=== PATIENT | female | born 1980 | race American Indian/Alaskan Native ===

== ENCOUNTER 2017-06-26 20:07 | Emergency (ER) | payer MEDICAID ==
[2017-06-26 21:04] LABS: Basophils % (Auto) 0.6 % (0.0-1.8); Eosinophils % (Auto) 3.7 % (0.0-4.3); Hematocrit 34.9 % (30.3-42.9); Hemoglobin 12.1 gm/dl (10.1-14.3); Mean Corpuscular HGB Conc 35 % (30-34); Mean Corpuscular Hemoglobin 32 pg (28-32); Mean Corpuscular Volume 93 fl (79-97); Platelet Count 217 K/mm3 (140-440); Red Blood Count 3.74 M/mm3 (3.65-5.03); Red Cell Distribution Width 11.7 % (13.2-15.2); White Blood Count 4.4 K/mm3 (4.5-11.0)
[2017-06-26 21:25] LABS: Anion Gap 17 mmol/L; Blood Urea Nitrogen 9 mg/dL (7-17); Calcium 9.2 mg/dL (8.4-10.2); Carbon Dioxide 23 mmol/L (22-30); Chloride 103.8 mmol/L (98-107); Glucose 114 mg/dL (65-100); Potassium 3.5 mmol/L (3.6-5.0); Sodium 140 mmol/L (137-145)
[2017-06-26 21:44] LABS: Bilirubin,Urine NEG (Negative); Blood,Urine MOD (Negative); Ketones,Urine NEG (Negative); Leukocyte Esterase,Urine TR (Negative); Mucus,Urine FEW /HPF; Nitrite,Urine NEG (Negative); Protein,Urine <15 mg/dL mg/dL (Negative); Urobilinogen,Urine < 2.0 mg/dL (<2.0); WBC,Urine < 1.0 /HPF (0.0-6.0)
[2017-06-27 00:05] VITALS: BP 140/89
[2017-06-27] MEDS ORDERED: TORADOL IM ONE (00:53)
[2017-06-27] MEDS ORDERED: TESSALON PERLES PO ONE (00:53)
--- NOTE | 2017-06-27 00:57 | Emergency Department Report ---
- General Chief Complaint: Upper Respiratory Infection Stated Complaint: CHEST PAIN Time Seen by Provider: 06/27/17 00:47 Source: patient Mode of arrival: Ambulatory Limitations: No Limitations - History of Present Illness Initial Comments: This is a 36-year-old female nontoxic, well nourished in appearance, no acute signs of distress presents to the ED complaining of green mucus productive cough , midsternal chest pain and intermittent headache 1 week. Patient stated chest pain is intermittent upon cough. Currently in the ED patient denies any chest pain or headache stated it subsided. Patient denies any trauma to the chest or head. Denies blurry vision, but the clot headache, fever, chills, nausea, vomiting, chest pain, wheezing, numbness or tingling. Denies stiff neck. Patient denies recent travels, long car rides or recent hospital stays. Denies calf pain or tenderness. Denies hemoptysis. Patient states allergies to sulfa. Past medical history includes asthma. MD Complaint: cough, sinus pain -: Gradual, week(s) (1) Severity: mild Severity scale (0 -10): 7 Quality: aching Consistency: constant Improves With: nothing Worsens With: nothing Associated Symptoms: denies other symptoms, headache, cough. denies: fever, chills, myalgias, diaphoresis, rhinorrhea, nasal congestion, sore throat, stiff neck, chest pain, shortness of breath, abdominal pain, nausea, vomiting, diarrhea, dysuria, rash, confusion, right sweats, weight loss, epistaxis, hoarseness, ear pain Treatments Prior to Arrival: none - Related Data Previous Rx's Medication Instructions Recorded Last Taken Type Azithromycin [Zithromax Z-SANIA] 250 mg PO DAILY #6 tablet 06/27/17 Unknown Rx Butalb/Acetamin/Caff 50-325-40 1 tab PO Q6HR PRN #30 tab 06/27/17 Unknown Rx [Fioricet] Prednisone [predniSONE 10 mg 10 mg PO .TAPER #1 tab.ds.pk 06/27/17 Unknown Rx (6-Day Pack, 21 Tabs)] Allergies Allergy/AdvReac Type Severity Reaction Status Date / Time Sulfa (Sulfonamide Allergy Swelling Verified 06/26/17 20:22 Antibiotics) ED Review of Systems ROS: Stated complaint: CHEST PAIN Other details as noted in HPI Constitutional: denies: chills, fever Eyes: denies: eye pain, eye discharge, vision change ENT: denies: ear pain, throat pain Respiratory: cough. denies: shortness of breath, wheezing Cardiovascular: denies: chest pain, palpitations Endocrine: no symptoms reported Gastrointestinal: denies: abdominal pain, nausea, diarrhea Genitourinary: denies: urgency, dysuria, discharge Musculoskeletal: denies: back pain, joint swelling, arthralgia Skin: denies: rash, lesions Neurological: denies: headache, weakness, paresthesias Psychiatric: denies: anxiety, depression Hematological/Lymphatic: denies: easy bleeding, easy bruising ED Past Medical Hx - Past Medical History Previous Medical History?: Yes Hx Asthma: Yes - Surgical History Past Surgical History?: No - Social History Smoking Status: Heavy Tobacco Smoker Substance Use Type: Alcohol - Medications Home Medications: Home Medications Medication Instructions Recorded Confirmed Last Taken Type Azithromycin [Zithromax Z-SANIA] 250 mg PO DAILY #6 tablet 06/27/17 Unknown Rx Butalb/Acetamin/Caff 50-325-40 1 tab PO Q6HR PRN #30 tab 06/27/17 Unknown Rx [Fioricet] Prednisone [predniSONE 10 mg 10 mg PO .TAPER #1 tab.ds.pk 06/27/17 Unknown Rx (6-Day Pack, 21 Tabs)] ED Physical Exam - General Limitations: No Limitations General appearance: alert, in no apparent distress - Head Head exam: Present: atraumatic, normocephalic, normal inspection - Eye Eye exam: Present: normal appearance, PERRL, EOMI. Absent: scleral icterus, conjunctival injection, nystagmus, periorbital swelling, periorbital tenderness Pupils: Present: normal accommodation - ENT ENT exam: Present: normal exam, normal orophraynx, mucous membranes moist, TM's normal bilaterally, normal external ear exam - Neck Neck exam: Present: normal inspection, full ROM. Absent: tenderness, meningismus, lymphadenopathy, thyromegaly - Respiratory Respiratory exam: Present: normal lung sounds bilaterally. Absent: respiratory distress, wheezes, rales, rhonchi, stridor, chest wall tenderness, accessory muscle use, decreased breath sounds, prolonged expiratory - Cardiovascular Cardiovascular Exam: Present: regular rate, normal rhythm, normal heart sounds. Absent: bradycardia, tachycardia, irregular rhythm, systolic murmur, diastolic murmur, rubs, gallop - GI/Abdominal GI/Abdominal exam: Present: soft, normal bowel sounds. Absent: distended, tenderness, guarding, rebound, rigid, diminished bowel sounds - Rectal Rectal exam: Present: deferred - Extremities Exam Extremities exam: Present: normal inspection, full ROM, normal capillary refill. Absent: tenderness, pedal edema, joint swelling, calf tenderness - Back Exam Back exam: Present: normal inspection, full ROM. Absent: tenderness, CVA tenderness (R), CVA tenderness (L), muscle spasm, paraspinal tenderness, vertebral tenderness, rash noted - Neurological Exam Neurological exam: Present: alert, oriented X3, CN II-XII intact, normal gait, reflexes normal - Expanded Neurological Exam Expanded Patient oriented to: Present: person, place, time Speech: Present: fluid speech Cranial nerves: EOM's Intact: Normal, Gag Reflex: Normal, Tongue Deviation: Normal, Nystagmus: Normal, Facial Sensation: Normal, Facial Palsy with Forehead Movement: Normal, Facial Palsy without Forehead Movement: Normal Cerebellar function: Finger to Nose: Normal, Heel to Dyer: Normal, Romberg: Normal Upper motor neuron: Johnson Neglect: Normal, Pronator Drift: Normal, Babinski Sign : Normal, Sensory Extinction: Normal Sensory exam: Upper Extremity Light Touch: Normal, Upper Extremity Pin Prick: Normal, Upper Extremity Temperature: Normal, UE 2 Point Discrimination: Normal, Lower Extremity Light Touch: Normal, Lower Extremity Pin Prick: Normal, Lower Extremity Temperature: Normal, LE 2 Point Discrimination: Normal Motor strength exam: RUE: 5, LUE: 5, RLE: 5, LLE: 5 DTR: bicep (R): 2+, bicep (L): 2+, tricep (R): 2+, tricep (L): 2+, knee (R): 2+ , knee (L): 2+, ankle (R): 2+, ankle (L): 2+ Best Eye Response (Omari): (4) open spontaneously Best Motor Response (Omari): (6) obeys commands Best Verbal Response (Omari): (5) oriented [place] Total: 15 - Psychiatric Psychiatric exam: Present: normal affect, normal mood - Skin Skin exam: Present: warm, dry, intact, normal color. Absent: rash - Other Other exam information: Mid-sternum chest pain upon palpation. ED Course Vital Signs 06/26/17 20:23 Temperature 97.4 F L Pulse Rate 60 Respiratory 20 Rate Blood Pressure 140/89 O2 Sat by Pulse 100 Oximetry - Reevaluation(s) Reevaluation #1: 06/27/17 00:56 Patient is speaking in full sentences with no signs of distress noted. ED Medical Decision Making - Lab Data Result diagrams: 06/26/17 20:40 06/26/17 20:40 - Medical Decision Making This is a 36-year-old female that presents with costochondritis and upper respiratory infection. Patient was at some of the cell. Patient is stable. CBC, BMP, troponin, UA, an EKG has been obtained with all normal findings. Chest x-ray has been obtained as well and dictated by radiologist with no abnormalities noted. Patient was notified of x-ray results with no further questioned by the patient. Patient received Tessalon Perles and Toradol in the ED. Headache stated it subsided and currently patient does not have any chest pain. Patient discharged with azithromycin and prednisone. Patient was instructed to follow-up with a primary care doctor in 3-5 days or if symptoms worsen and continue present emergency room as soon as possible. Critical care attestation.: If time is entered above; I have spent that time in minutes in the direct care of this critically ill patient, excluding procedure time. ED Disposition Clinical Impression: Costochondritis Upper respiratory infection Qualifiers: URI type: unspecified URI Qualified Code(s): J06.9 - Acute upper respiratory infection, unspecified Headache Qualifiers: Headache type: unspecified Headache chronicity pattern: chronic headache Intractability: not intractable Qualified Code(s): R51 - Headache Disposition: DC-01 TO HOME OR SELFCARE Is pt being admited?: No Does the pt Need Aspirin: No Condition: Stable Instructions: Costochondritis (ED), Upper Respiratory Infection (ED), Prednisone (By mouth), Azithromycin (By mouth) Additional Instructions: follow-up with a primary care doctor in 3-5 days or if symptoms worsen and continue present emergency room as soon as possible. Prescriptions: Azithromycin [Zithromax Z-SANIA] 250 mg PO DAILY #6 tablet Butalb/Acetamin/Caff 50-325-40 [Fioricet] 1 tab PO Q6HR PRN #30 tab PRN Reason: Headache Prednisone [predniSONE 10 mg (6-Day Pack, 21 Tabs)] 10 mg PO .TAPER #1 tab.ds.pk Referrals: PRIMARY CARE, [Primary Care Provider] - 3-5 Days JENNIFER RINALDI MD [Staff Physician] - 3-5 Days RAYSHAWN CRANE JR, MD [Referring] - 3-5 Days [facility] [Outside] - 3-5 Days [facility] [Outside] - 3-5 Days Forms: Work/School Release Form(ED)
--- NOTE | 2017-06-27 01:03 | XRay Report ---
FINAL REPORT EXAM: XR CHEST ROUTINE 2V HISTORY: CHEST TIGHTNESS/COUGHING COMPARISON: None available. FINDINGS:: Frontal and lateral views of the chest obtained. Cardiac silhouette is within normal limits. No focal consolidation or effusion. No pneumothorax. Visualized bony thorax is grossly intact. IMPRESSION:: No acute findings.
== END 2017-06-27 01:33 | disposition home or self-care (01) ==
LOC: ED 20:07
DX: J06.9 Acute upper respiratory infection, unspecified (principal); M94.0 Chondrocostal junction syndrome [Tietze]; R51 Headache; J45.909 Unspecified asthma, uncomplicated; F17.200 Nicotine dependence, unspecified, uncomplicated; Z88.2 Allergy status to sulfonamides
CPT/HCPCS: 36415; 71020; 80048; 81001; 84484; 84703; 85025; 93005; 93010; 96372; 99284; J1885

== ENCOUNTER 2017-08-01 09:41 | Outpatient (CLI) | payer MEDICAID ==
--- NOTE | 2017-08-01 16:39 | Ultrasound Report ---
BILATERAL DIGITAL DIAGNOSTIC MAMMOGRAM with CAD and TOMOSYNTHESIS and BILATERAL BREAST ULTRASOUND: 08/01/17 09:41:00 CLINICAL: 36-year-old with a dark reddish left nipple discharge over nine months. COMPARISON:None. These are Baseline studies. FINDINGS: The breasts are mostly fatty with a few bilateral scattered fibrolinear densities. Left outer duct ectasia involving several branching ducts. No mass or architectural distortion. A right retroareolar asymmetry on the CC tomographic sequence. Ultrasound of the right breast demonstrated a slightly irregular cyst at 12 o'clock 6 cm from the nipple. It measures 8 x 3 x 4 mm and has a few internal echoes. It correlates with the mammographic asymmetry. No solid mass or shadowing. Ultrasound of the left breast (including the retroareolar area and all four quadrants) was performed. Several moderately dilated outer ducts and a subareolar duct at 3 o'clock with an oval echogenic mass in the duct. The mass measures 8 x 3 x 4 mm. No other intraductal mass is identified. A subareolar round echogenic mass at 4 o'clock measures 3 x 5 x 4 mm. No shadowing. IMPRESSION: 1. An 8 mm left subareolar intraductal mass which probably explains the bloody left nipple discharge. Recommend ultrasound-guided vacuum assisted needle biopsy of the left breast. 2. A 5 mm hyperechoic subareolar mass at 4 o'clock. Recommend ultrasound guided needle biopsy. 3. A benign right breast cyst at 12 o'clock. BI-RADS CATEGORY: 4--Suspicious RECOMMENDATION: Ultrasound guided needle biopsy at 2 sites left breast. COMMENT: Patient follow-up letters are generated by our [employer] application.
== END 2017-08-01 09:42 | disposition home or self-care (01) ==
LOC: US 09:41
PROVIDERS: ATTEND Nurse Practitioner Gerontology
DX: N60.01 Solitary cyst of right breast (principal); N64.52 Nipple discharge; N60.42 Mammary duct ectasia of left breast; N63.20 Unspecified lump in the left breast, unspecified quadrant; F17.200 Nicotine dependence, unspecified, uncomplicated
CPT/HCPCS: 76642; G0204; G0279; 77063; 77066

== ENCOUNTER 2017-09-20 09:08 | Outpatient (CLI) | payer MEDICAID ==
--- NOTE | 2017-09-24 09:06 | Ultrasound Report ---
LEFT BREAST ULTRASOUND: 09/20/17 09:08:00 CLINICAL: The patient was scheduled for an ultrasound guided biopsy of the lesion identified on 08/01/17. She reports that a bloody nipple discharge is less frequent but persists nonetheless. COMPARISON: 08/01/17 FINDINGS: Ultrasound of the left breast demonstrated retroareolar duct ectasia at 3 o'clock but no intraductal mass as suspected on the last exam.Therefore, no biopsy was performed. IMPRESSION: Retroareolar duct ectasia but no mass identified for biopsy. Recommend MRI of the breast for evaluation of bloody nipple discharge. At this time, a galactogram would not likely be feasible since she cannot express blood on demand. BI-RADS 0--Needs Additional Imaging RECOMMENDATION: Bilateral Breast MRI. If MRI is not feasible, recommend clinical followup and followup left breast ultrasound and mammogram in six months.
== END 2017-09-20 09:09 | disposition home or self-care (01) ==
LOC: SPVWC 09:08
PROVIDERS: ATTEND Surgery
DX: N60.42 Mammary duct ectasia of left breast (principal); N64.52 Nipple discharge